=== PATIENT | female | born 1960 | race Caucasian/White ===

== ENCOUNTER → 2019-11-30 13:24 | Outpatient (BNVA) | payer SELFPAY | PROVIDERS: Family Provider Nurse Practitioner Family; PCP Nurse Practitioner Family; Visit Provider Podiatrist Foot & Ankle Surgery | DX: M25.572 Pain in left ankle and joints of left foot (principal); M77.32 Calcaneal spur, left foot; M79.672 Pain in left foot; M19.072 Primary osteoarthritis, left ankle and foot; M20.12 Hallux valgus (acquired), left foot; M89.9 Disorder of bone, unspecified | CPT/HCPCS: 73610; 73630 ==

== ENCOUNTER → 2020-05-30 10:37 | Outpatient (BNVA) | payer SELFPAY | PROVIDERS: Family Provider Nurse Practitioner Family; PCP Nurse Practitioner Family; Visit Provider Nurse Practitioner Family | DX: M79.89 Other specified soft tissue disorders (principal); M19.041 Primary osteoarthritis, right hand | CPT/HCPCS: 73130; 85025 ==

== ENCOUNTER 2020-06-22 13:06 | Outpatient (CLI) | payer SELFPAY | END 2020-06-22 13:07 | disposition home or self-care (01) | LOC: WOUND 13:10 | PROVIDERS: Family Provider Nurse Practitioner Family; PCP Nurse Practitioner Family; Visit Provider Thoracic Surgery (Cardiothoracic Vascular Surgery) | DX: Z09 Encounter for follow-up examination after completed treatment for conditions other than malignant neoplasm (principal) | CPT/HCPCS: 99212 ==

== ENCOUNTER → 2020-07-14 11:31 | Outpatient (BNVA) | payer SELFPAY | PROVIDERS: Family Provider Nurse Practitioner Family; PCP Nurse Practitioner Family; Visit Provider Nurse Practitioner Family | DX: M25.50 Pain in unspecified joint (principal) | CPT/HCPCS: 80053; 84550; 85025; 85651; 86038; 86141; 86431 ==

== ENCOUNTER → 2020-08-22 15:57 | Outpatient (BNVA) | payer SELFPAY | PROVIDERS: Family Provider Nurse Practitioner Family; PCP Nurse Practitioner Family; Visit Provider Podiatrist Foot & Ankle Surgery | DX: M76.61 Achilles tendinitis, right leg (principal); M79.671 Pain in right foot; M76.71 Peroneal tendinitis, right leg; M77.41 Metatarsalgia, right foot | CPT/HCPCS: 73630 ==

== ENCOUNTER → 2021-03-01 15:01 | Outpatient (BNVA) | payer SELFPAY | PROVIDERS: Family Provider Nurse Practitioner Family; Visit Provider Podiatrist Foot & Ankle Surgery | DX: M19.071 Primary osteoarthritis, right ankle and foot (principal); M79.671 Pain in right foot | CPT/HCPCS: 73630 ==

== ENCOUNTER → 2021-03-07 11:57 | Outpatient (BNVA) | payer SELFPAY | PROVIDERS: Family Provider Nurse Practitioner Family; Visit Provider Dermatology | DX: Z01.89 Encounter for other specified special examinations (principal) ==

== ENCOUNTER → 2021-03-15 15:33 | Outpatient (BNVA) | payer SELFPAY | PROVIDERS: Family Provider Nurse Practitioner Family; Visit Provider Podiatrist Foot & Ankle Surgery | DX: S92.811A Other fracture of right foot, initial encounter for closed fracture (principal); M79.671 Pain in right foot; X58.XXXA Exposure to other specified factors, initial encounter | CPT/HCPCS: 73620; 73630 ==

== ENCOUNTER → 2021-03-29 15:28 | Outpatient (BNVA) | payer SELFPAY | PROVIDERS: Family Provider Nurse Practitioner Family; Visit Provider Podiatrist Foot & Ankle Surgery | DX: S92.811A Other fracture of right foot, initial encounter for closed fracture (principal); X58.XXXA Exposure to other specified factors, initial encounter; M79.671 Pain in right foot | CPT/HCPCS: 73620 ==

== ENCOUNTER → 2021-06-06 14:05 | Outpatient (BNVA) | payer SELFPAY | PROVIDERS: Family Provider Nurse Practitioner Family; Visit Provider Nurse Practitioner Family | DX: M79.642 Pain in left hand (principal); M19.042 Primary osteoarthritis, left hand | CPT/HCPCS: 73100; 73130 ==

== ENCOUNTER → 2021-06-09 08:28 | Outpatient (BNVA) | payer SELFPAY | PROVIDERS: Family Provider Nurse Practitioner Family; Visit Provider Nurse Practitioner Family | DX: E03.9 Hypothyroidism, unspecified (principal); E11.9 Type 2 diabetes mellitus without complications | CPT/HCPCS: 80053; 82310; 83970 ==

== ENCOUNTER → 2021-08-14 10:10 | Outpatient (BNVA) | payer SELFPAY | PROVIDERS: Family Provider Nurse Practitioner Family; Visit Provider Podiatrist Foot & Ankle Surgery | DX: S93.421A Sprain of deltoid ligament of right ankle, initial encounter (principal); W22.09XA Striking against other stationary object, initial encounter | CPT/HCPCS: 73630 ==

== ENCOUNTER → 2021-08-29 08:11 | Outpatient (BNVA) | payer SELFPAY | PROVIDERS: Family Provider Nurse Practitioner Family; Visit Provider Dermatology | DX: Z01.89 Encounter for other specified special examinations (principal) ==

== ENCOUNTER → 2021-11-16 09:36 | Outpatient (BNVA) | payer SELFPAY | PROVIDERS: Family Provider Nurse Practitioner Family; Visit Provider Podiatrist Foot & Ankle Surgery | DX: M79.672 Pain in left foot (principal) | CPT/HCPCS: 73630 ==

== ENCOUNTER → 2021-12-06 14:51 | Outpatient (BNVA) | payer SELFPAY | PROVIDERS: Family Provider Nurse Practitioner Family; Visit Provider Podiatrist Foot & Ankle Surgery | DX: M19.071 Primary osteoarthritis, right ankle and foot (principal) | CPT/HCPCS: 73630 ==

== ENCOUNTER → 2022-02-27 09:46 | Outpatient (BNVA) | payer SELFPAY | PROVIDERS: Family Provider Nurse Practitioner Family; Visit Provider Dermatology | DX: Z01.89 Encounter for other specified special examinations (principal) ==

== ENCOUNTER → 2022-04-10 07:49 | Outpatient (BNVA) | payer SELFPAY | PROVIDERS: Family Provider Nurse Practitioner Family; Visit Provider Nurse Practitioner Family | DX: M25.561 Pain in right knee (principal); Z79.1 Long term (current) use of non-steroidal anti-inflammatories (NSAID); E11.9 Type 2 diabetes mellitus without complications; K21.9 Gastro-esophageal reflux disease without esophagitis; M62.838 Other muscle spasm | CPT/HCPCS: 80053 ==

== ENCOUNTER → 2022-06-05 14:49 | Outpatient (BNVA) | payer SELFPAY | PROVIDERS: Family Provider Nurse Practitioner Family; Visit Provider Podiatrist Foot & Ankle Surgery | DX: G57.61 Lesion of plantar nerve, right lower limb (principal) | CPT/HCPCS: 73630 ==

== ENCOUNTER → 2022-09-28 14:19 | Outpatient (BNVA) | payer SELFPAY | PROVIDERS: Family Provider Nurse Practitioner Family; PCP Family Medicine; Visit Provider Nurse Practitioner Family | DX: L03.113 Cellulitis of right upper limb (principal) | CPT/HCPCS: 73130 ==

== ENCOUNTER → 2022-10-01 10:38 | Outpatient (BNVA) | payer SELFPAY | PROVIDERS: Family Provider Nurse Practitioner Family; PCP Family Medicine; Visit Provider Nurse Practitioner Family | DX: L03.113 Cellulitis of right upper limb (principal) | CPT/HCPCS: 80053; 84550; 85025; 85651 ==

== ENCOUNTER → 2022-12-27 16:22 | Outpatient (BNVA) | payer SELFPAY | PROVIDERS: Family Provider Nurse Practitioner Family; PCP Family Medicine; Visit Provider Nurse Practitioner Family | DX: R50.9 Fever, unspecified (principal) | CPT/HCPCS: 87400 ==

== ENCOUNTER → 2023-02-26 09:36 | Outpatient (BNVA) | payer SELFPAY | PROVIDERS: Family Provider Nurse Practitioner Family; PCP Family Medicine; Visit Provider Dermatology | DX: Z01.89 Encounter for other specified special examinations (principal) ==

== ENCOUNTER → 2023-08-13 14:42 | Outpatient (BNVA) | payer MEDICARE, SELFPAY | PROVIDERS: Family Provider Nurse Practitioner Family; PCP Family Medicine; Visit Provider Podiatrist Foot & Ankle Surgery | DX: M77.51 Other enthesopathy of right foot and ankle; G57.61 Lesion of plantar nerve, right lower limb | CPT/HCPCS: 20605; 73630; J1100 ==

== ENCOUNTER → 2023-09-11 09:40 | Outpatient (BNVA) | payer MEDICARE, SELFPAY | PROVIDERS: Family Provider Nurse Practitioner Family; PCP Family Medicine; Visit Provider Nurse Practitioner Family | DX: E55.9 Vitamin D deficiency, unspecified; I10 Essential (primary) hypertension; E78.5 Hyperlipidemia, unspecified; E11.9 Type 2 diabetes mellitus without complications; E03.9 Hypothyroidism, unspecified; M79.644 Pain in right finger(s); L03.032 Cellulitis of left toe; M25.59 Pain in other specified joint; L03.011 Cellulitis of right finger; Z79.899 Other long term (current) drug therapy | CPT/HCPCS: 80053; 80061; 82306; 83036; 84443; 84550; 85025; 85651; 86038; 86140; 86200; 86431 ==

== ENCOUNTER → 2024-01-15 15:29 | Outpatient (BNVA) | payer MEDICARE, SELFPAY | PROVIDERS: Family Provider Nurse Practitioner Family; PCP Family Medicine; Visit Provider Nurse Practitioner Family | DX: N39.0 Urinary tract infection, site not specified (principal) | CPT/HCPCS: 81000 ==

== ENCOUNTER → 2024-04-20 09:09 | Outpatient (BNVA) | payer MEDICARE, SELFPAY | PROVIDERS: Family Provider Nurse Practitioner Family; PCP Nurse Practitioner Family; Visit Provider Nurse Practitioner Family | DX: E11.9 Type 2 diabetes mellitus without complications (principal); K21.9 Gastro-esophageal reflux disease without esophagitis | CPT/HCPCS: 80053; 80061; 83036; 83735; 84443; 84550; 85025 ==

== ENCOUNTER → 2024-07-27 09:42 | Outpatient (BNVA) | payer MEDICARE, SELFPAY | PROVIDERS: Family Provider Nurse Practitioner Family; PCP Nurse Practitioner Family; Visit Provider Nurse Practitioner Family | DX: M10.9 Gout, unspecified (principal); E11.9 Type 2 diabetes mellitus without complications | CPT/HCPCS: 80053; 80061; 83036; 83735; 84443; 84550; 85025 ==

== ENCOUNTER → 2024-11-02 10:11 | Outpatient (BNVA) | payer MEDICARE, SELFPAY | PROVIDERS: Family Provider Nurse Practitioner Family; PCP Nurse Practitioner Family; Visit Provider Nurse Practitioner Family | DX: E11.9 Type 2 diabetes mellitus without complications (principal) | CPT/HCPCS: 80053; 80061; 83036; 84443; 85025 ==

== ENCOUNTER → 2024-11-03 07:47 | Outpatient (BNVA) | payer MEDICARE, SELFPAY | PROVIDERS: Family Provider Nurse Practitioner Family; PCP Nurse Practitioner Family; Visit Provider Podiatrist Foot & Ankle Surgery | DX: M79.671 Pain in right foot (principal); M79.672 Pain in left foot; E11.69 Type 2 diabetes mellitus with other specified complication; B35.1 Tinea unguium; M20.21 Hallux rigidus, right foot; M20.22 Hallux rigidus, left foot; Z79.84 Long term (current) use of oral hypoglycemic drugs; E11.9 Type 2 diabetes mellitus without complications | CPT/HCPCS: 73630; 99213 ==

== ENCOUNTER → 2024-12-14 07:54 | Outpatient (BNVA) | payer MEDICARE, SELFPAY | PROVIDERS: PCP Nurse Practitioner Family; Visit Provider Podiatrist Foot & Ankle Surgery | DX: M79.672 Pain in left foot (principal); E11.42 Type 2 diabetes mellitus with diabetic polyneuropathy; M10.072 Idiopathic gout, left ankle and foot; Z79.84 Long term (current) use of oral hypoglycemic drugs | CPT/HCPCS: 36415; 73630; 80053; 84550; 85025; 85651; 86140; 99214 ==

== ENCOUNTER → 2025-01-04 08:45 | Outpatient (BNVA) | payer MEDICARE, SELFPAY | PROVIDERS: PCP Nurse Practitioner Family; Visit Provider Podiatrist Foot & Ankle Surgery | DX: E11.9 Type 2 diabetes mellitus without complications (principal); M10.072 Idiopathic gout, left ankle and foot; Z79.84 Long term (current) use of oral hypoglycemic drugs | CPT/HCPCS: 99213 ==

== ENCOUNTER → 2025-01-27 08:56 | Outpatient (BNVA) | payer MEDICARE, SELFPAY | PROVIDERS: PCP Nurse Practitioner Family; Visit Provider Podiatrist Foot & Ankle Surgery | DX: M79.671 Pain in right foot (principal); M76.61 Achilles tendinitis, right leg; E11.9 Type 2 diabetes mellitus without complications; Z79.84 Long term (current) use of oral hypoglycemic drugs | CPT/HCPCS: 73630; 99214 ==

== ENCOUNTER 2025-02-14 05:00 | Outpatient (RCR) | payer MEDICARE, SELFPAY | END 2025-03-15 23:59 | disposition home or self-care (01) | LOC: APT 05:00 | PROVIDERS: PCP Nurse Practitioner Family; Visit Provider Podiatrist Foot & Ankle Surgery | DX: M76.60 Achilles tendinitis, unspecified leg (principal) | CPT/HCPCS: 97161 ==

== ENCOUNTER → 2025-04-09 13:04 | Outpatient (BNVA) | payer MEDICARE, SELFPAY | PROVIDERS: PCP Nurse Practitioner Family; Visit Provider Emergency Medicine | DX: M25.532 Pain in left wrist (principal) | CPT/HCPCS: 73110 ==

== ENCOUNTER 2025-04-09 13:32 | Emergency (ER) | payer MEDICARE, SELFPAY ==
[2025-04-09 13:37] VITALS: BP 206/111; PULSE 99; RESP 16; TEMP 37.2; O2SAT 97
--- NOTE | 2025-04-09 15:02 | XRR_ITS ---
PROCEDURE INFORMATION: Exam: XR Chest Exam date and time: 04/09/2025 3:23 PM Age: 64 years old Clinical indication: Other: Hypertensive TECHNIQUE: Imaging protocol: Radiologic exam of the chest. Views: 2 views. COMPARISON: No relevant prior studies available. FINDINGS: Lungs: There is pulmonary hypoinflation on the lateral radiograph with compressive changes throughout the lungs. No dense focal consolidation is seen on the frontal radiograph. Pleural spaces: No significant pleural effusion. No pneumothorax. Heart/Mediastinum: Within normal limits. Bones/joints: Intact. There are degenerative changes involving the thoracic spine. Other findings: None. XR/XR chest 2V* [id number] IMPRESSION: No acute findings.
[2025-04-09 15:11] LABS: Hematocrit 42.5 % (36-47); Hemoglobin 13.80 g/dL (11.27-16.99); Mean Corpuscular HGB Conc 32.5 g/dL (30-55); Mean Corpuscular Hemoglobin 24.3 pg (27-33); Mean Corpuscular Volume 75.0 fl (85-98); Nucleated Red Blood Cells % 0 %; Platelet Count 303 10^3/cmm (157-399); Red Blood Count 5.67 10^6/uL (3.85-5.65); White Blood Count 10.77 10^3/uL (3.29-11.43)
--- NOTE | 2025-04-09 15:11 | CTR_ITS ---
PROCEDURE INFORMATION: Exam: CT Left Upper Extremity Without Contrast, Wrist Exam date and time: 04/09/2025 3:30 PM Age: 64 years old Clinical indication: Swelling; Wrist; Left; Additional info: Forearm wrist and hand swelling. Palsy TECHNIQUE: Imaging protocol: Computed tomography of the left upper extremity without contrast. Exam focused on the wrist. Radiation optimization: All CT scans at this facility use at least one of these dose optimization techniques: automated exposure control; mA and/or kV adjustment per patient size (includes targeted exams where dose is matched to clinical indication); or iterative reconstruction. COMPARISON: CR XR wrist LT min 3V* [id number] 04/09/2025 1:08 PM RADIATION DOSE METRICS: Total DLP (mGy-cm): 84.91 FINDINGS: Limitations: Patient motion artifact limits optimal evaluation. Bones/joints: There is slight widening of the scapholunate joint space, not significantly changed since the prior study. Osseous structures are otherwise normally aligned. There is mild joint space narrowing with mild subchondral sclerosis and tiny spurs, particularly involving the 1st CMC joint and triscaphe joint. No acute fracture is detected. Soft tissues: There is soft tissue edema surrounding the wrist. CT/CT wrist LT wo con* [id number] IMPRESSION: 1. Patient motion artifact limiting evaluation. 2. Slight widening of the scapholunate joint space, stable since June 06, 2021. 3. Mild degenerative joint disease as described. 4. No acute fracture detected. 5. If there is persistent clinical concern, MRI may be helpful for further evaluation.
--- NOTE | 2025-04-09 15:35 | PM.CONSULT ---
Providers/Reason For Consult Consulting Physician/Specialty*: Troy Davis, /orthopedic surgery Reason for Consult*: Left wrist/hand pain and swelling Requesting Physician: Sindi Broderick Attending Physician: Dr. Castañeda Primary Care Provider: ALEX Aguilar History of Present Illness History of Present Illness Tiffani Webster (Marie) is a 64 year old female 64-year-old female who presents emergency department with left wrist pain was sent over from urgent care for further evaluation. Patient states roughly over a week ago she was riding her lawnmower and got caught on a wire and pulled her mower up in the air she denied any injury noticeable to her wrist at that time but since then her left wrist has had progressing pain and swelling. Patient does report of a history of gout has not had this in her wrist but in her feet. Patient states she has tried meloxicam without relief. She went to urgent care today for evaluation. Was sent over from urgent care for evaluation treatment recommendations. I was contacted by emergency department at 320 and subsequently evaluated patient at 3:35 PM this afternoon. On my history taking the patient. She has complaints of most of her pain around the left wrist as well as decreased hand range of motion due to her pain. Patient denies having any any fevers but states having possibly the chills last night and has had no documented fevers in the ER. Patient is resting comfortably at bedside does not appear to be in any acute distress. Review of Systems General: Reports: 10 or more systems reviewed and unremarkable except in HPI and below Medications/Allergies Home Medications ?Medication ?Instructions ?Recorded ?Confirmed ?Last Taken ?Type omega-3 fatty acids 1,000 mg 1,000 mg PO QDAY 10/06/19 04/09/25 Unknown History capsule (Fish Oil Concentrate) selenium 50 mcg tablet 100 mcg PO QDAY 10/06/19 04/09/25 Unknown History alcohol swabs 1 pad topical DIRECTED #200 ea 04/27/24 04/09/25 Unknown Rx blood sugar diagnostic (Blood #200 ea 04/27/24 04/09/25 Unknown Rx Glucose Test strips) blood-glucose meter #1 ea 04/27/24 04/09/25 Unknown Rx lancets #200 ea 04/27/24 04/09/25 Unknown Rx levothyroxine 75 mcg tablet See Rx Instructions .Route 08/04/24 04/09/25 Unknown Rx (Euthyrox) .COMPLEX #90 tabs losartan 50 mg tablet 50 mg PO DAILY #90 tabs 08/04/24 04/09/25 Unknown Rx metformin 500 mg tablet See Rx Instructions .Route 08/04/24 04/09/25 Unknown Rx .COMPLEX #90 tabs triamterene 37.5 1 tab PO QAM #90 tabs 11/02/24 04/09/25 Unknown Rx mg-hydrochlorothiazide 25 mg tablet celecoxib 100 mg capsule (Celebrex) 100 mg PO BID 10 days #20 caps 04/09/25 Unknown Rx prednisone 10 mg tablet 10 mg PO DAILY 7 days #27 tabs 04/09/25 Unknown Rx Allergies Allergy/AdvReac Type Severity Reaction Status Date / Time doxycycline Allergy Intermediate RASH Verified 04/09/25 12:47 amoxicillin Allergy Unknown Unknown Verified 04/09/25 12:47 clarithromycin (From Biaxin) Allergy Unknown Unknown Verified 04/09/25 12:47 loratadine (From Claritin) Allergy Unknown Unknown Verified 04/09/25 12:47 Sulfa (Sulfonamide Allergy Unknown Unknown Verified 04/09/25 12:47 Antibiotics) PFSH Acute PFSH: Medical History (Updated 04/09/25 @ 18:33 by Troy Davis DO) Type 2 diabetes mellitus without complications Obesity, unspecified Vitamin D deficiency Hypothyroidism, unspecified Hyperlipidemia, unspecified Essential (primary) hypertension Anemia, unspecified Inflammatory arthritis Osteoarthritis Uterine prolapse Surgical History History of ankle surgery Family History Family/Other Cancer Social History Smoking and tobacco/nicotine status: never used tobacco/nicotine Alcohol intake: never Substance/Drug Use: never Adopted: No Lives independently: Yes Household members: spouse Housing: House Marital status: service: No Current occupational status: unemployed Current gender identity: Male Vitals/I&O/Wt Last Vital Signs Temp 98.9 F 04/09/25 13:37 Pulse 82 04/09/25 15:52 Resp 16 04/09/25 15:52 BP 183/99 04/09/25 15:52 Pulse Ox 94 04/09/25 15:52 O2 Del Method Room Air 04/09/25 15:52 Weight last 48 hrs Weight 240 lb Physical Exam Narrative: Orthopedic examination: Examination of the patient's left upper extremity. Patient is resting comfortably in the ER no signs of acute distress. Examination of the left upper extremity demonstrates no swelling or tenderness palpation of the left shoulder elbow or forearm. Patient's compartments are soft compressible in the left upper arm and lower arm. Examination of the hand she does have some swelling over the dorsum aspect of the hand but most pronounced her swelling is over directly the dorsal aspect of the wrist on the more radial and slightly dorsal aspect of the wrist over the styloid she does have some focalized subtle erythema. She has tenderness palpation over the wrist joint no tenderness to palpation over the compartments of the left hand patient has sensations intact to light touch to the radial ulnar and median nerve distribution her fingertips warm well-perfused brisk cap refill less than 2 seconds she has distal pulses of the radius are palpable. She is able to tolerate gentle passive range of motion of her fingers with no pain or any pain out of proportion. She does have pain with range of motion of the wrist as well as micro range of motion of the wrist. Subtle warmth at the wrist joint appreciated on examination as well. Once again her compartments are soft and compressible and only mild edematous swelling noted over the hand with still positive wrinkle sign appreciated. Data 04/09/25 15:01 04/09/25 15:01 Micro: Uric acid 6.6 ESR 13 CRP 66 Xray Ortho: Radiologist's impression: Ordering Provider/Ordering MD: Yuri Vickers Date of Service: 04/09/25 Procedure(s): XR wrist LT min 3V* [id number] Accession Number(s): [id number] Report Number: [id number] WS: [id number] Left wrist, 3 views, 04/09/2025 Clinical Data: Pain Comparison: None. Findings: No fractures or dislocations are seen. The carpal bones are intact. There is no soft tissue swelling. The distal radius and ulna are not remarkable. The scapholunate interval has not changed. XR/XR wrist LT min 3V* [id number] Impression: Negative left wrist. Ordering Provider/Ordering MD: Viji Broderick APRN Date of Service: 04/09/25 Procedure(s): CT wrist LT wo con* [id number] Accession Number(s): [id number] Report Number: [id number] PROCEDURE INFORMATION: Exam: CT Left Upper Extremity Without Contrast, Wrist Exam date and time: 04/09/2025 3:30 PM Age: 64 years old Clinical indication: Swelling; Wrist; Left; Additional info: Forearm wrist and hand swelling. Palsy TECHNIQUE: Imaging protocol: Computed tomography of the left upper extremity without contrast. Exam focused on the wrist. Radiation optimization: All CT scans at this facility use at least one of these dose optimization techniques: automated exposure control; mA and/or kV adjustment per patient size (includes targeted exams where dose is matched to clinical indication); or iterative reconstruction. COMPARISON: CR XR wrist LT min 3V* [id number] 04/09/2025 1:08 PM RADIATION DOSE METRICS: Total DLP (mGy-cm): 84.91 FINDINGS: Limitations: Patient motion artifact limits optimal evaluation. Bones/joints: There is slight widening of the scapholunate joint space, not significantly changed since the prior study. Osseous structures are otherwise normally aligned. There is mild joint space narrowing with mild subchondral sclerosis and tiny spurs, particularly involving the 1st CMC joint and triscaphe joint. No acute fracture is detected. Soft tissues: There is soft tissue edema surrounding the wrist. CT/CT wrist LT wo con* [id number] IMPRESSION: 1. Patient motion artifact limiting evaluation. 2. Slight widening of the scapholunate joint space, stable since June 06, 2021. 3. Mild degenerative joint disease as described. 4. No acute fracture detected. 5. If there is persistent clinical concern, MRI may be helpful for further evaluation. A&P Assessment and plan 1. Gout: 2. Left wrist pain: 3. Swelling of left wrist: Plan: X-rays reviewed Labs reviewed?patient has elevated uric acid 6.6, ESR 13, CRP 66, WBC 10.77 CT scan reviewed?stable scapholunate joint space mild degenerative changes of the wrist no acute fracture appreciated no appreciable joint effusion for fluid collection or any signs of abscess Attempted performance of left wrist joint aspiration?patient had a dry tap and some lidocaine was injected after the dry aspiration and patient did have immediate improvement of her symptoms and a range of motion Stable for discharge from Ortho standpoint Treatment for gout Patient will receive steroid per emergency department Recommend compressive Raymond wrap to help with swelling Recommend elevation and ice Recommend wrist brace Recommend finger range of motion Recommend limit any heavy lifting Can follow-up with orthopedics as needed Recommend outpatient follow-up with PCP Procedure in detail: The left wrist was identified and obtained verbal consent from patient. At this point in time I then subsequently identified Rach's tubercle and in standard fashion just ulnar to the distal radial ulnar joint palpated the swelling at the wrist. There is no signs of erythema in this site this was then subsequently marked this was then prepped and standard orthopedic fashion with ChloraPrep. Once properly sterilized I then subsequently inserted a 22-gauge syringe into the radiocarpal joint I then subsequently attempted multiple aspirations of this there was no fluid that was able to be aspirated consistent with a dry tap. At this point in time I then subsequently disconnected the aspiration syringe and injected roughly 4 cc of 1% lidocaine into the wrist joint this had easy flow of of injection was performed under standard withdrawal and inject technique confirming not being intravascular. Needle was then subsequently removed this was then subsequently cleaned and a bandage applied. Immediately after she was able to start having good range of motion and improving of the wrist as well as of her fingers as well as improvement in her pain. Patient tolerated well without issues or complications. MDM: Patient is a pleasant 64-year-old female sustained [employer] injury with a lawnmower accident roughly over a week ago. Was sent from urgent care due to concerns for swelling at the wrist and hand and decreased range of motion work up at this point in time on my clinical examination there is no signs of acute compartment syndrome she does have focalized swelling over the wrist joint and had positive pain over the wrist joint with swelling as well as pain with micro range of motion. We had a CT scan performed there is no evidence of swelling in the area or fracture chronic degenerative changes appreciated she does have a history of gout and had elevated uric acid today and as well as a elevated CRP as well. Patient had no white count. At this point in time we talked about her options moving forward and through shared decision making she agreed to proceed with a left wrist joint aspiration and possible injection of lidocaine just to help with her pain depending on aspiration results. At this point in time she underwent the joint aspiration that was a dry tap consistent with no joint effusion and no infectious source I then subsequently injected 4 cc of lidocaine with ease of flow of injection confirming of being intra-articular. Patient tolerated this well without issues and has already considerable improvement just from the intra-articular lidocaine injection. At this point in time working diagnosis would be gout is with a dry aspiration her clinical exam findings as well as CT scan and history have ruled out septic joint or underlying infection and ruled out any compartment syndrome at this point in time we will discharge her home on a compressive Raymond wrap wrist brace work on finger range of motion limit any heavy lifting elevation and ice as needed she will receive steroid from the emergency department and at discharge recommend follow-up with PCP for gout workup. Patient understands agrees with current plan. Questions answered. If she has any issues questions or concerns she is instructed she can return to the emergency department if her symptoms worsen. Otherwise she can follow-up with orthopedics on an as-needed basis. She is given her number to call as needed for follow-up of her left wrist if she wishes. Patient understands agrees to current plan. Questions answered. Her was accompanying her at bedside understands agrees with current plan. All questions answered. PDMP PDMP Reviewed: Not Reviewed Coding Level of Care Code Acute Code for Chg Fwd Diagnoses Gout M10.9 Left wrist pain M25.532 Swelling of left wrist M25.432 Time Spent (min) 65
[2025-04-09 15:41] VITALS: BP 195/108; PULSE 91; O2SAT 96
[2025-04-09 15:45] LABS: Alanine Aminotransferase 14 U/L (0-33); Albumin Level 4.0 g/dL (3.5-5.2); Alkaline Phosphatase 104 U/L (35-105); Anion Gap 15.6 (5-19); Aspartate Amino Transferase 16 U/L (0-32); Blood Urea Nitrogen 12 mg/dL (8-23); Calcium 9.1 mg/dL (8.5-10.5); Carbon Dioxide 26 mmol/L (22-29); Chloride 100 mmol/L (98-107); Creatinine Clr Calc Pharmacy 87.9124; Globulin 3.4 g/dL (1.3-4.6); Glucose 110 mg/dL (65-115); Osmolality Calculated 286 mOsm/kg (285-295); Potassium 3.6 mmol/L (3.5-5.1); Sodium 138 mmol/L (136-145); Total Protein 7.4 g/dL (6.6-8.7)
[2025-04-09] MEDS: labetalol 5 mg/mL SDV 20mL 20 MG IVP (15:49)
[2025-04-09 15:52] VITALS: BP 183/99; PULSE 82; RESP 16; O2SAT 94
--- NOTE | 2025-04-09 15:57 | ECG_ITS ---
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
[2025-04-09 16:25] LABS: Uric Acid 6.6 mg/dL (2.4-5.7)
--- NOTE | 2025-04-09 16:44 | W.ED.EXTPRO ---
Documented by User: TUSHAR Rodriguez 04/09/25 17:05 HPI - Extremity Problem General: Chief complaint: Extremity Injury, Upper Stated complaint: injury/swelling left hand Time Seen by Provider: 04/09/25 14:57 History of Present Illness: Tiffani Webster is a 64-year-old female that goes by the name Riana. She is [id number] female that presents to the emergency department with complaints of left wrist pain. Patient relates a history of injury and then slow progression of symptoms. She reports that approximately 7 to 10 days ago she was in a riding lawnmower and got caught up in a wire that pulled the mower up in the air. She reports she does not believe she injured her wrist at that time. She was fine for several days and then started developing achiness. After couple days her pain increased significantly. She reports history of gout She denies any other injury. She is trialed meloxicam x 2 doses without relief. Patient was evaluated her to urgent care today and underwent x-ray. She has edema noted to the distal forearm, dorsum of hand and fingers. She has limited range of motion of her wrist due to pain and can wiggle her fingers but otherwise no intentional movement. Patient is very tender over the wrist Associated symptoms: Deny chest pain, fever(s) or rash Related Data Home Medications ?Medication ?Instructions ?Recorded ?Confirmed omega-3 fatty acids 1,000 mg 1,000 mg PO QDAY 10/06/19 04/09/25 capsule (Fish Oil Concentrate) selenium 50 mcg tablet 100 mcg PO QDAY 10/06/19 04/09/25 Previous Rx's ?Medication ?Instructions ?Recorded alcohol swabs 1 pad topical DIRECTED #200 ea 04/27/24 blood sugar diagnostic (Blood #200 ea 04/27/24 Glucose Test strips) blood-glucose meter #1 ea 04/27/24 lancets #200 ea 04/27/24 levothyroxine 75 mcg tablet See Rx Instructions .Route 08/04/24 (Euthyrox) .COMPLEX #90 tabs losartan 50 mg tablet 50 mg PO DAILY #90 tabs 08/04/24 metformin 500 mg tablet See Rx Instructions .Route 08/04/24 .COMPLEX #90 tabs triamterene 37.5 1 tab PO QAM #90 tabs 02/17/25 mg-hydrochlorothiazide 25 mg tablet celecoxib 100 mg capsule (Celebrex) 100 mg PO BID 10 days #20 caps 04/09/25 prednisone 10 mg tablet 10 mg PO DAILY 7 days #27 tabs 04/09/25 Allergies Allergy/AdvReac Type Severity Reaction Status Date / Time doxycycline Allergy Intermediate RASH Verified 04/09/25 12:47 amoxicillin Allergy Unknown Unknown Verified 04/09/25 12:47 clarithromycin (From Biaxin) Allergy Unknown Unknown Verified 04/09/25 12:47 loratadine (From Claritin) Allergy Unknown Unknown Verified 04/09/25 12:47 Sulfa (Sulfonamide Allergy Unknown Unknown Verified 04/09/25 12:47 Antibiotics) Review of Systems General: Reports: 10 or more systems reviewed and unremarkable except in HPI and below Const: Denies: fever(s), chills or fatigue ENMT: Denies: throat pain, ear or mastoid pain, nasal congestion or sinus pain Card: Denies: chest pain, palpitations or swelling of feet/ankles Resp: Denies: dyspnea or productive cough GI: Denies: abdominal pain, nausea, vomiting, diarrhea, constipation or hematochezia : Denies: flank pain or difficulty voiding Musc: Denies: back pain Skin/Breast: Denies: rash Neuro: Denies: headache(s), numbness in extremities, weakness in extremities or confusion PFSH ED PFSH: Medical History (Updated 04/09/25 @ 17:52 by SAMMI Molina) Type 2 diabetes mellitus without complications Obesity, unspecified Vitamin D deficiency Hypothyroidism, unspecified Hyperlipidemia, unspecified Essential (primary) hypertension Anemia, unspecified Inflammatory arthritis Osteoarthritis Uterine prolapse Surgical History History of ankle surgery Family History Family/Other Cancer Social History Smoking and tobacco/nicotine status: never used tobacco/nicotine Alcohol intake: never Substance/Drug Use: never Adopted: No Lives independently: Yes Household members: spouse Housing: House Marital status: service: No Current occupational status: unemployed Current gender identity: Male Physical Exam Const: COMMON NORMALS: no acute distress and patient oriented x3 GENERAL APPEARANCE: cooperative; not in distress HENMT: COMMON NORMALS: normocephalic HEAD & SCALP: normal to inspection and normocephalic Neck/C-Spine: COMMON NORMALS: full ROM, no lymphadenopathy, supple and no meningeal signs GENERAL: Yes normal visual inspection and Yes trachea midline Chest: COMMONS NORMALS: normal inspection of the chest Resp: COMMON NORMALS: normal respiratory effort and clear to auscultation bilaterally EFFORT & INSPECTION: Yes able to speak in complete sentences and No respiratory distress AUSCULTATION: clear to auscultation bilaterally, no rales, no rhonchi and no wheezes Cardio: COMMON NORMALS: regular rate, regular rhythm, S1 normal heart sound present, S2 normal heart sound present and No murmurs present (Cardio) RATE: regular rate RHYTHM: regular rhythm HEART SOUNDS: S1 normal heart sound present and S2 normal heart sound present PERIPHERAL PULSES: radial pulses present Extremity: COMMON NORMALS: no calf tenderness and no pedal edema OTHER: Left upper extremity: Skin is clean dry and intact Swelling noted to the dorsum of the wrist and hand Tenderness over the dorsum of the wrist. Patient has full fingers and dorsum of the hand. There is redness, warmth, tenderness Patient has limited wrist extension Patient is able to give a thumbs up, flex DIP, unable to cross fingers Unable to extend wrist SILT Cap refill < 3 secs Neuro: COMMON NORMALS: patient oriented x3, moves all extremities and no focal motor deficits MENINGEAL SIGNS: Yes no meningeal signs Skin: COMMON NORMALS: no rashes or lesions noted GENERAL SKIN EXAM: no rashes or lesions noted Course Vital Signs: Vital signs: Vital Signs Temperature 98.9 F 04/09/25 13:37 Pulse Rate 76 04/09/25 16:55 Respiratory Rate 16 04/09/25 15:52 Blood Pressure 163/81 04/09/25 16:55 Pulse Oximetry 94 04/09/25 16:55 Oxygen Delivery Me thod Room Air 04/09/25 15:52 MDM - Extremity (Nontraumatic) Medical Decision Making Patient was evaluated in the emergency department today for right wrist pain, redness, swelling. She underwent x-ray imaging which was negative for acute fracture. We did obtain a CT of the wrist to rule out soft tissue abscess, joint infection. CT results: 1. Patient motion artifact limiting evaluation. 2. Slight widening of the scapholunate joint space, stable since June 06, 2021. 3. Mild degenerative joint disease as described. 4. No acute fracture detected. 5. If there is persistent clinical concern, MRI may be helpful for further evaluation. She did have an elevated CRP of 66 but normal ESR. Her uric acid was 6.6. I reviewed findings with Dr. Davis who is going to discuss possible joint aspiration with the patient. I have given her a dose of steroids as well as Toradol. The remainder of her laboratory studies were unremarkable. When she arrived here she was pretty hypertensive 206/110. She is currently 163/81. This was after a labetalol dose. Patient is going to discharge home with diagnosis of gout, a compressive Raymond wrap and wrist splint. Going to send her home on a Medrol Dosepak and Celebrex Patient needs to follow-up with her primary care doctor for allopurinol and ongoing management Lab Data 04/09/25 15:01 04/09/25 15:01 Radiology Impressions Chest X-Ray 04/09/25 15:02 IMPRESSION: No acute findings. Wrist CT 04/09/25 15:11 IMPRESSION: 1. Patient motion artifact limiting evaluation. 2. Slight widening of the scapholunate joint space, stable since June 06, 2021. 3. Mild degenerative joint disease as described. 4. No acute fracture detected. 5. If there is persistent clinical concern, MRI may be helpful for further evaluation. Laboratory Results WBC 10.77 10^3/uL (3.29-11.43) 04/09/25 15:01 RBC 5.67 10^6/uL (3.85-5.65) H 04/09/25 15:01 Hgb 13.80 g/dL (11.27-16.99) 04/09/25 15:01 Hct 42.5 % (36-47) 04/09/25 15:01 MCV 75.0 fl (85-98) L 04/09/25 15:01 MCH 24.3 pg (27-33) L 04/09/25 15:01 MCHC 32.5 g/dL (30-55) 04/09/25 15:01 RDW 16.2 % (12.1-15.1) H 04/09/25 15:01 Plt Count 303 10^3/cmm (157-399) 04/09/25 15:01 MPV 9.1 fL (7.4-10.4) 04/09/25 15:01 Neut % (Auto) 74.7 % 04/09/25 15:01 Lymph % (Auto) 16.0 % 04/09/25 15:01 [place] % (Auto) 7.6 % 04/09/25 15:01 Eos % (Auto) 0.6 % 04/09/25 15:01 Baso % (Auto) 0.6 % 04/09/25 15:01 Neut # (Auto) 8.06 10^3/uL (1.8-7.7) H 04/09/25 15:01 Lymph # (Auto) 1.7 10^3/uL (0.8-4.8) 04/09/25 15:01 [place] # (Auto) 0.8 10^3/uL (0.2-0.9) 04/09/25 15:01 Eos # (Auto) 0.1 10^3/uL (0.0-0.8) 04/09/25 15:01 Baso # (Auto) 0.1 10^3/uL (0.0-0.1) 04/09/25 15:01 Nucleated RBC % (auto) 0 % 04/09/25 15:01 Nucleated RBCs # 0.0 /100WBC 04/09/25 15:01 ESR 13 mm/hr (0-15) 04/09/25 15:01 Sodium 138 mmol/L (136-145) 04/09/25 15:01 Potassium 3.6 mmol/L (3.5-5.1) 04/09/25 15:01 Chloride 100 mmol/L (98-107) 04/09/25 15:01 Carbon Dioxide 26 mmol/L (22-29) 04/09/25 15:01 Anion Gap 15.6 (5-19) 04/09/25 15:01 BUN 12 mg/dL (8-23) 04/09/25 15:01 Creatinine 0.7 mg/dL (0.5-0.9) 04/09/25 15:01 GFR Calculation 83.7 mL/min (90-130) L 04/09/25 15:01 Glucose 110 mg/dL (65-115) 04/09/25 15:01 Calculated Osmolality 286 mOsm/kg (285-295) 04/09/25 15:01 Uric Acid 6.6 mg/dL (2.4-5.7) H 04/09/25 15:01 Calcium 9.1 mg/dL (8.5-10.5) 04/09/25 15:01 Total Bilirubin 0.6 mg/dL (0.15-1.2) 04/09/25 15:01 AST 16 U/L (0-32) 04/09/25 15:01 ALT 14 U/L (0-33) 04/09/25 15:01 Alkaline Phosphatase 104 U/L (35-105) 04/09/25 15:01 C-Reactive Protein 66.1 mg/L (0.0-4.9) H 04/09/25 15:01 Total Protein 7.4 g/dL (6.6-8.7) 04/09/25 15:01 Albumin 4.0 g/dL (3.5-5.2) 04/09/25 15:01 Globulin 3.4 g/dL (1.3-4.6) 04/09/25 15:01 Discharge Plan Discharge Patient Disposition: Home Clinical Impression: Gout Qualifiers: Gout site: wrist Gout etiology: unspecified cause Chronicity: acute Laterality: left Qualified Code(s): M10.9 - Gout, unspecified Condition: Stable Prescriptions: New celecoxib [Celebrex] 100 mg capsule 100 mg PO BID 10 Days Qty: 20 0RF prednisone 10 mg tablet 10 mg PO DAILY 7 Days Qty: 27 0RF Rx Instructions: 6 tabs on days 1-2, 5 tabs on days 3, 4 tabs on day 4, 3 tabs on day 5, 2 tabs on day 6, 1 tab on day 7 Discontinued meloxicam 15 mg tablet 15 mg PO DAILY PRN (Reason: pain) Qty: 30 0RF No Action omega-3 fatty acids [Fish Oil Concentrate] 1,000 mg capsule 1,000 mg PO QDAY selenium 50 mcg tablet 100 mcg PO QDAY metformin 500 mg tablet See Rx Instructions .ROUTE .COMPLEX Qty: 90 1RF Dose Instruction: Take 1 tablet by mouth twice daily Rx Instructions: Take 1 tablet by mouth daily levothyroxine [Euthyrox] 75 mcg tablet See Rx Instructions .ROUTE .COMPLEX Qty: 90 1RF Dose Instruction: Take 1 tablet by mouth once daily Rx Instructions: Take 1 tablet by mouth once daily losartan 50 mg tablet 50 mg PO DAILY Qty: 90 1RF triamterene-hydrochlorothiazid 37.5-25 mg tablet 1 tab PO QAM Qty: 90 1RF alcohol swabs Pads, Medicated 1 pad topical DIRECTED Qty: 200 12RF Rx Instructions: Use as directed to clean skin prior to finger stick or medication injection daily (DME) blood-glucose meter Misc See Rx Instructions .MEDSUPPLY Qty: 1 0RF Rx Instructions: Use as directed for checking blood sugar daily (DME) Blood Glucose Test Strip See Rx Instructions .MEDSUPPLY Qty: 200 12RF Rx Instructions: Use as directed with glucometer to check blood sugar daily (DME) lancets Misc See Rx Instructions .MEDSUPPLY Qty: 200 12RF Rx Instructions: Use as directed to prick skin for blood sugar checks daily Discharge Orders: Discharge ED (Routine); Ordered 04/09/25 Ordered By: Viji Broderick Referrals: Kristin Agarwal FNP [Primary Care Provider, Family Practice] Patient Instructions: Gout (ED), Patient Portal & [place] Instructions Activity Restrictions/Additional Instructions: Please follow-up with your primary care doctor. Call next week for an appointment. Please return to the emergency department for new, concerning, worsening symptoms Take the steroids as well as the Celebrex as prescribed (do not take with your Meloxicam) or other over the counter anti-inflammatories. Print Language: Monegasque Sign Out Sign Out Data: Patient Sign Out occurred on 04/09/25 at 17:31. Patient's care was discussed, and care was transferred from TUSHAR Rodriguez to SAMMI Molina. Coding Level of Care Code ED Medical Detailist for Chg Fwd Documented by User: SAMMI Molina 04/09/25 18:24 HPI - Extremity Problem General: Chief complaint: Extremity Injury, Upper Stated complaint: injury/swelling left hand Time Seen by Provider: 04/09/25 14:57 Related Data Home Medications ?Medication ?Instructions ?Recorded ?Confirmed omega-3 fatty acids 1,000 mg 1,000 mg PO QDAY 10/06/19 04/09/25 capsule (Fish Oil Concentrate) selenium 50 mcg tablet 100 mcg PO QDAY 10/06/19 04/09/25 Previous Rx's ?Medication ?Instructions ?Recorded alcohol swabs 1 pad topical DIRECTED #200 ea 04/27/24 blood sugar diagnostic (Blood #200 ea 04/27/24 Glucose Test strips) blood-glucose meter #1 ea 04/27/24 lancets #200 ea 04/27/24 levothyroxine 75 mcg tablet See Rx Instructions .Route 08/04/24 (Euthyrox) .COMPLEX #90 tabs losartan 50 mg tablet 50 mg PO DAILY #90 tabs 08/04/24 metformin 500 mg tablet See Rx Instructions .Route 08/04/24 .COMPLEX #90 tabs triamterene 37.5 1 tab PO QAM #90 tabs 11/02/24 mg-hydrochlorothiazide 25 mg tablet celecoxib 100 mg capsule (Celebrex) 100 mg PO BID 10 days #20 caps 04/09/25 prednisone 10 mg tablet 10 mg PO DAILY 7 days #27 tabs 04/09/25 Allergies Allergy/AdvReac Type Severity Reaction Status Date / Time doxycycline Allergy Intermediate RASH Verified 04/09/25 12:47 amoxicillin Allergy Unknown Unknown Verified 04/09/25 12:47 clarithromycin (From Biaxin) Allergy Unknown Unknown Verified 04/09/25 12:47 loratadine (From Claritin) Allergy Unknown Unknown Verified 04/09/25 12:47 Sulfa (Sulfonamide Allergy Unknown Unknown Verified 04/09/25 12:47 Antibiotics) PFSH ED PFSH: Medical History (Updated 04/09/25 @ 17:52 by SAMMI Molina) Type 2 diabetes mellitus without complications Obesity, unspecified Vitamin D deficiency Hypothyroidism, unspecified Hyperlipidemia, unspecified Essential (primary) hypertension Anemia, unspecified Inflammatory arthritis Osteoarthritis Uterine prolapse Surgical History History of ankle surgery Family History Family/Other Cancer Social History Smoking and tobacco/nicotine status: never used tobacco/nicotine Alcohol intake: never Substance/Drug Use: never Adopted: No Lives independently: Yes Household members: spouse Housing: House Marital status: service: No Current occupational status: unemployed Current gender identity: Male Course Vital Signs: Vital signs: Vital Signs Temperature 98.9 F 04/09/25 13:37 Pulse Rate 76 04/09/25 16:55 Respiratory Rate 16 04/09/25 15:52 Blood Pressure 163/81 04/09/25 16:55 Pulse Oximetry 94 04/09/25 16:55 Oxygen Delivery Me thod Room Air 04/09/25 15:52 MDM - Extremity (Nontraumatic) Medical Decision Making Patient was evaluated in the emergency department today for right wrist pain, redness, swelling. She underwent x-ray imaging which was negative for acute fracture. We did obtain a CT of the wrist to rule out soft tissue abscess, joint infection. CT results: 1. Patient motion artifact limiting evaluation. 2. Slight widening of the scapholunate joint space, stable since June 06, 2021. 3. Mild degenerative joint disease as described. 4. No acute fracture detected. 5. If there is persistent clinical concern, MRI may be helpful for further evaluation. She did have an elevated CRP of 66 but normal ESR. Her uric acid was 6.6. I reviewed findings with Dr. Davis who is going to discuss possible joint aspiration with the patient. I have given her a dose of steroids as well as Toradol. The remainder of her laboratory studies were unremarkable. When she arrived here she was pretty hypertensive 206/110. She is currently 163/81. This was after a labetalol dose. Patient is going to discharge home with diagnosis of gout, a compressive Raymond wrap and wrist splint. Going to send her home on a Medrol Dosepak and Celebrex Patient needs to follow-up with her primary care doctor for allopurinol and ongoing management Care transferred from [facility] just pending consult and joint aspiration attempt by Dr. Davis. He has evaluated patient here in ED and attempted aspiration but was dry. Agreed with plan for NSAIDS/steroids, requested RAYMOND wrap/splint, and she can follow up with PCP. Medical Records I reviewed the patient's medical records. Lab Data I reviewed the patient's lab results. 04/09/25 15:01 04/09/25 15:01 Radiology Impressions Chest X-Ray 04/09/25 15:02 IMPRESSION: No acute findings. Wrist CT 04/09/25 15:11 IMPRESSION: 1. Patient motion artifact limiting evaluation. 2. Slight widening of the scapholunate joint space, stable since June 06, 2021. 3. Mild degenerative joint disease as described. 4. No acute fracture detected. 5. If there is persistent clinical concern, MRI may be helpful for further evaluation. Laboratory Results WBC 10.77 10^3/uL (3.29-11.43) 04/09/25 15:01 RBC 5.67 10^6/uL (3.85-5.65) H 04/09/25 15:01 Hgb 13.80 g/dL (11.27-16.99) 04/09/25 15:01 Hct 42.5 % (36-47) 04/09/25 15:01 MCV 75.0 fl (85-98) L 04/09/25 15:01 MCH 24.3 pg (27-33) L 04/09/25 15:01 MCHC 32.5 g/dL (30-55) 04/09/25 15:01 RDW 16.2 % (12.1-15.1) H 04/09/25 15:01 Plt Count 303 10^3/cmm (157-399) 04/09/25 15:01 MPV 9.1 fL (7.4-10.4) 04/09/25 15:01 Neut % (Auto) 74.7 % 04/09/25 15:01 Lymph % (Auto) 16.0 % 04/09/25 15:01 [place] % (Auto) 7.6 % 04/09/25 15:01 Eos % (Auto) 0.6 % 04/09/25 15:01 Baso % (Auto) 0.6 % 04/09/25 15:01 Neut # (Auto) 8.06 10^3/uL (1.8-7.7) H 04/09/25 15:01 Lymph # (Auto) 1.7 10^3/uL (0.8-4.8) 04/09/25 15:01 [place] # (Auto) 0.8 10^3/uL (0.2-0.9) 04/09/25 15:01 Eos # (Auto) 0.1 10^3/uL (0.0-0.8) 04/09/25 15:01 Baso # (Auto) 0.1 10^3/uL (0.0-0.1) 04/09/25 15:01 Nucleated RBC % (auto) 0 % 04/09/25 15:01 Nucleated RBCs # 0.0 /100WBC 04/09/25 15:01 ESR 13 mm/hr (0-15) 04/09/25 15:01 Sodium 138 mmol/L (136-145) 04/09/25 15:01 Potassium 3.6 mmol/L (3.5-5.1) 04/09/25 15:01 Chloride 100 mmol/L (98-107) 04/09/25 15:01 Carbon Dioxide 26 mmol/L (22-29) 04/09/25 15:01 Anion Gap 15.6 (5-19) 04/09/25 15:01 BUN 12 mg/dL (8-23) 04/09/25 15:01 Creatinine 0.7 mg/dL (0.5-0.9) 04/09/25 15:01 GFR Calculation 83.7 mL/min (90-130) L 04/09/25 15:01 Glucose 110 mg/dL (65-115) 04/09/25 15:01 Calculated Osmolality 286 mOsm/kg (285-295) 04/09/25 15:01 Uric Acid 6.6 mg/dL (2.4-5.7) H 04/09/25 15:01 Calcium 9.1 mg/dL (8.5-10.5) 04/09/25 15:01 Total Bilirubin 0.6 mg/dL (0.15-1.2) 04/09/25 15:01 AST 16 U/L (0-32) 04/09/25 15:01 ALT 14 U/L (0-33) 04/09/25 15:01 Alkaline Phosphatase 104 U/L (35-105) 04/09/25 15:01 C-Reactive Protein 66.1 mg/L (0.0-4.9) H 04/09/25 15:01 Total Protein 7.4 g/dL (6.6-8.7) 04/09/25 15:01 Albumin 4.0 g/dL (3.5-5.2) 04/09/25 15:01 Globulin 3.4 g/dL (1.3-4.6) 04/09/25 15:01 All radiology interpretation(s) finalized by discharge Discharge Plan Discharge Patient Disposition: Home Clinical Impression: Gout Qualifiers: Gout site: wrist Gout etiology: unspecified cause Chronicity: acute Laterality: left Qualified Code(s): M10.9 - Gout, unspecified Condition: Stable Prescriptions: New celecoxib [Celebrex] 100 mg capsule 100 mg PO BID 10 Days Qty: 20 0RF prednisone 10 mg tablet 10 mg PO DAILY 7 Days Qty: 27 0RF Rx Instructions: 6 tabs on days 1-2, 5 tabs on days 3, 4 tabs on day 4, 3 tabs on day 5, 2 tabs on day 6, 1 tab on day 7 Discontinued meloxicam 15 mg tablet 15 mg PO DAILY PRN (Reason: pain) Qty: 30 0RF No Action omega-3 fatty acids [Fish Oil Concentrate] 1,000 mg capsule 1,000 mg PO QDAY selenium 50 mcg tablet 100 mcg PO QDAY metformin 500 mg tablet See Rx Instructions .ROUTE .COMPLEX Qty: 90 1RF Dose Instruction: Take 1 tablet by mouth twice daily Rx Instructions: Take 1 tablet by mouth daily levothyroxine [Euthyrox] 75 mcg tablet See Rx Instructions .ROUTE .COMPLEX Qty: 90 1RF Dose Instruction: Take 1 tablet by mouth once daily Rx Instructions: Take 1 tablet by mouth once daily losartan 50 mg tablet 50 mg PO DAILY Qty: 90 1RF triamterene-hydrochlorothiazid 37.5-25 mg tablet 1 tab PO QAM Qty: 90 1RF alcohol swabs Pads, Medicated 1 pad topical DIRECTED Qty: 200 12RF Rx Instructions: Use as directed to clean skin prior to finger stick or medication injection daily (DME) blood-glucose meter Misc See Rx Instructions .MEDSUPPLY Qty: 1 0RF Rx Instructions: Use as directed for checking blood sugar daily (DME) Blood Glucose Test Strip See Rx Instructions .MEDSUPPLY Qty: 200 12RF Rx Instructions: Use as directed with glucometer to check blood sugar daily (DME) lancets Misc See Rx Instructions .MEDSUPPLY Qty: 200 12RF Rx Instructions: Use as directed to prick skin for blood sugar checks daily Discharge Orders: Discharge ED (Routine); Ordered 04/09/25 Ordered By: Viji Broderick Referrals: Kristin Agarwal FNP [Primary Care Provider, Family Practice] Patient Instructions: Gout (ED), Patient Portal & [place] Instructions Activity Restrictions/Additional Instructions: Please follow-up with your primary care doctor. Call next week for an appointment. Please return to the emergency department for new, concerning, worsening symptoms Take the steroids as well as the Celebrex as prescribed (do not take with your Meloxicam) or other over the counter anti-inflammatories. Print Language: Monegasque Sign Out Sign Out Data: Patient Sign Out occurred on 04/09/25 at 17:31. Patient's care was discussed, and care was transferred from TUSHAR Rodriguez to SAMMI Molina. Coding Level of Care Code ED Medical Detailist for Ilya Mathis
[2025-04-09] MEDS: methylPREDNISolone (DEPO) 80 MG/ML INJ 1 mL IM (16:52)
[2025-04-09 16:55] VITALS: BP 163/81; PULSE 76; O2SAT 94
[2025-04-09] MEDS: lidocaine 2% INJ 20 mL INJECTION (17:19)
[2025-04-09 18:50] VITALS: BP 179/95; PULSE 82; O2SAT 92
== END 2025-04-09 18:53 | disposition home or self-care (01) ==
PROVIDERS: Nurse Practitioner; Emergency Provider Physician Assistant; PCP Nurse Practitioner Family
DX: M10.032 Idiopathic gout, left wrist (principal); Z79.84 Long term (current) use of oral hypoglycemic drugs; E11.9 Type 2 diabetes mellitus without complications; I10 Essential (primary) hypertension; E78.5 Hyperlipidemia, unspecified
CPT/HCPCS: 29125; 71046; 73200; 80053; 84550; 85025; 85651; 86140; 93005; 96372; 96374; 96375; 99285; J1010; J1885; J3490; J9999

== ENCOUNTER → 2025-05-13 09:06 | Outpatient (BNVA) | payer MEDICARE, SELFPAY | PROVIDERS: PCP Nurse Practitioner Family; Visit Provider Nurse Practitioner Family | DX: E11.9 Type 2 diabetes mellitus without complications (principal) | CPT/HCPCS: 80053; 80061; 83036; 84443; 84550; 85025 ==

== ENCOUNTER → 2025-06-07 08:52 | Outpatient (BNVA) | payer MEDICARE, SELFPAY | PROVIDERS: PCP Nurse Practitioner Family; Visit Provider Podiatrist Foot & Ankle Surgery | DX: M65.971 Unspecified synovitis and tenosynovitis, right ankle and foot (principal); E11.9 Type 2 diabetes mellitus without complications; Z79.84 Long term (current) use of oral hypoglycemic drugs | CPT/HCPCS: 73610; 99213 ==

== ENCOUNTER → 2025-07-30 07:56 | Outpatient (BNVA) | payer MEDICARE, SELFPAY | PROVIDERS: PCP Clinical Nurse Specialist Adult Health; Visit Provider Clinical Nurse Specialist Adult Health | DX: E55.9 Vitamin D deficiency, unspecified (principal); E11.9 Type 2 diabetes mellitus without complications; M10.9 Gout, unspecified | CPT/HCPCS: 80061; 82306; 84550 ==